=== PATIENT | female | born 1990 ===

== ENCOUNTER 2017-03-05 07:37 | Day surgery (SDC) ==
[2017-03-05] MEDS ORDERED: SUFENTA IVP ONE (10:00)
[2017-03-05] MEDS ORDERED: DIPRIVAN 20 ML VIAL IVP ONE (10:00)
[2017-03-05] MEDS ORDERED: VERSED ONE (10:00)
[2017-03-05] MEDS ORDERED: LIDOCAINE 1%-EPI 1:100,000 10 ML (SURGERY) INJ ONE (10:15)
[2017-03-05] MEDS ORDERED: GELFOAM SIZE 50 TP ONE (10:18)
[2017-03-05] MEDS ORDERED: DILAUDID 1 MG/ML SYRINGE IVP ONE ×3 (10:35→10:45)
[2017-03-05 14:03] VITALS: BP 113/65; TEMP 97.6
--- NOTE | 2017-03-06 08:09 | OP ---
PREOPERATIVE DIAGNOSIS: DEVIATED SEPTUM, HYPERTROPHIC INFERIOR TURBINATES. POSTOPERATIVE DIAGNOSIS: DEVIATED SEPTUM, HYPERTROPHIC INFERIOR TURBINATES. OPERATION: SEPTOPLASTY AND PARTIAL RESECTION OF INFERIOR TURBINATES. DESCRIPTION OF PROCEDURE: The patient was taken to surgery, placed on the table and general anesthesia was administered. 1% Xylocaine/100,000 Epinephrine was injected in a classic septorhinoplasty technique. A left hemitransfixion incision was made and dissection was carried down to the mucoperiosteum. The mucoperiosteum was then elevated in the left and noted to be markedly deviated cartilage on the anterior inferior aspect. This was then dissection on both sides then using a double action rongeurs the deviated cartilage was removed. A small chisel was used to removed part of the crest and then then the perpendicular plate of the ethmoid and vomer were dissected free from the cartilage. This allowed for the cartilage to be swung back in the midline position. Incision site was then closed using interrupted 4-0 Chromic suture. Through and through suture of 4-0 Chromic was placed through the quadrangular cartilage. Each inferior turbinate was then partly cauterized and resected and fractured laterally. A medium- sized rhino rocket was placed in each side of the nose and the patient's mouth and oropharynx were irrigated copiously with saline and was extubated. The patient was returned to the recovery room in satisfactory condition. DODIE
== END 2017-03-05 12:30 | disposition home or self-care (01) ==
LOC: SURG 07:37
PROVIDERS: ATTEND Otolaryngology
DX: J34.2 Deviated nasal septum (principal); J34.3 Hypertrophy of nasal turbinates; F17.200 Nicotine dependence, unspecified, uncomplicated

== ENCOUNTER 2017-10-20 18:37 | Emergency (ER) ==
[2017-10-20 18:45] VITALS: TEMP 97.8; BMI 24.0
[2017-10-20] MEDS ORDERED: SODIUM CHLORIDE IV STA ×2 (19:14→19:30)
[2017-10-20] MEDS ORDERED: DILANTIN IV STA ×2 (19:14→19:30)
[2017-10-20] MEDS ORDERED: DILANTIN ONE (19:23)
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
--- NOTE | 2017-10-20 19:52 | CT ---
EXAM: CT scan brain without contrast HISTORY: Seizure. COMPARISON: None. FINDINGS: Contiguous axial images obtained from the skull base to the convexities without contrast u tilizing 5-mm collimation. Sagittal and coronal reconstructions were imaged and reviewed.. The vent ricles and CSF spaces are within normal limits. There are no acute intracranial findings. Visualize d paranasal sinuses and mastoid air cells are clear the calvarium is intact. IMPRESSION: No acute intracranial findings
[2017-10-20 21:24] VITALS: BP 113/90
[2017-10-20] MEDS ORDERED: BENADRYL IVP STA (21:36)
[2017-10-20] MEDS ORDERED: SOLU-MEDROL 125 MG IVP STA (21:36)
[2017-10-20] MEDS ORDERED: DILANTIN PO STA (22:12)
== END 2017-10-20 23:01 | disposition home or self-care (01) ==
LOC: ED 18:37
DX: R56.9 Unspecified convulsions (principal); Z91.14 Patient's other noncompliance with medication regimen; F17.210 Nicotine dependence, cigarettes, uncomplicated
CPT/HCPCS: 36415; 80053; 80185; 80306; 83735; 84703; 85025; 96365; 96375; 99285